=== PATIENT | female | born 1950 | race Caucasian/White ===

== ENCOUNTER 2025-03-08 11:59 | Outpatient (CLI) | payer BC, MEDICAID ==
--- NOTE | 2025-03-08 14:13 | RADIOLOGY REPORT ---
CLINICAL HISTORY: PARKINSONISM TECHNIQUE: Routine multiplanar imaging of the brain was performed without gadolinium contrast. COMPARISON: None FINDINGS: There is no abnormal restricted diffusion to suggest acute infarction. There is mild brain volume loss. Scattered T2 hyperintense foci within the white matter both cerebral hemispheres is most compatible with a mild burden of nonspecific chronic small vessel ischemic change. There is no evidence for acute ischemic changes, mass, mass effect, or extra- axial fluid collection. There is no hydrocephalus or midline shift. The cerebral sulci and subarachnoid cisterns are not effaced. The imaged paranasal sinuses are clear. There has been bilateral cataract extraction. The midline structures, including the corpus callosum, are unremarkable. The intracranial flow voids are maintained. IMPRESSION: No acute intracranial abnormality seen. No evidence for acute infarct. Mild brain volume loss. Mild chronic small vessel ischemic change. Bilateral cataract extraction.
== END 2025-03-08 23:59 | disposition home or self-care (01) ==
LOC: MRI 11:59
PROVIDERS: ATTEND Psychiatry & Neurology Neurology
DX: I67.82 Cerebral ischemia (principal); G20.C Parkinsonism, unspecified; Z98.42 Cataract extraction status, left eye; Z98.41 Cataract extraction status, right eye
CPT/HCPCS: 70551